=== PATIENT | female | born 1990 | race Caucasian/White ===

== ENCOUNTER 2020-02-13 02:32 | Inpatient (IN) | payer SELFPAY ==
[2020-02-13] MEDS ORDERED: NA CHLORIDE 0.9% 1,000 ML ONE ×2 (04:20→12:28)
[2020-02-13 05:50] LABS: Barbiturates NEGATIVE (NEGATIVE); Benzodiazepines NEGATIVE (NEGATIVE); Cocaine NEGATIVE (NEGATIVE); METHAMPHETAM POSITIVE (NEGATIVE); Methadone NEGATIVE (NEGATIVE); Opiates POSITIVE (NEGATIVE); Phencyclidine NEGATIVE (NEGATIVE); THC Cannibis NEGATIVE (NEGATIVE)
[2020-02-13 06:14] LABS: Absolute Lymphocytes (CBC) 0.8 K/uL (0.7-4.9); Basophils % 0.3 % (0-1.3); Hematocrit 37.5 % (36.0-45.0); Lymphocytes % 6.7 % (15.3-44.8); MPV 8.9 fL (7.6-11.3)
[2020-02-13 06:20] LABS: Urine Blood 1+ (NEG); Urine Glucose NEGATIVE (NEG); Urine Protein TRACE (NEG); Urine Specific Gravity 1.015 (1.005-1.030); Urine pH 6.5 (5.0-7.0)
[2020-02-13 06:20] LABS: Protime INR 1.51
[2020-02-13 06:29] LABS: ALT/SGPT 29 U/L (12-78); AST/SGOT 24 U/L (15-37); Albumin 2.8 g/dL (3.4-5.0); Alkaline Phosphatase 117 U/L (45-117); BUN Blood Urea Nitrogen 8 mg/dL (7-18); Bicarbonate 24 mmol/L (21-32); Bilirubin Direct 0.3 mg/dL (0-0.2); Bilirubin Total 0.7 mg/dL (0.2-1.0); CKMB Creatine Kinase MB 2.1 ng/mL (0.3-3.6); Creatine Phosphokinase 72 U/L (26-192); Glucose Level 96 mg/dL (74-106); Lipase 45 U/L (73-393); Magnesium 2.1 mg/dL (1.8-2.4); NT PRO-BNP 327 pg/mL (<125); Sodium Level 127 mmol/L (136-145); Troponin (Emerg Dept Use Only) < 0.02 ng/mL (0.0-0.045)
[2020-02-13 07:09] LABS: Blood Morphology Comment NOT SEEN (NOT SEEN); Platelet Estimate ADEQ
--- NOTE | 2020-02-13 08:30 | RAD REPORT ---
EXAM DESCRIPTION: RAD - Chest Single View - 02/13/2020 4:01 am CLINICAL HISTORY: SOB Chest pain. COMPARISON: Chest Pa And Lat (2 Views) dated 06/18/2016; CHEST PA AND LAT 2 VIEW dated 10/18/2015; CH EST SINGLE VIEW dated 03/12/2015No comparisons FINDINGS: Portable technique limits examination quality. The lungs are grossly clear. The heart is normal in size. No displaced fractures. IMPRESSION: No acute intrathoracic process suspected.
[2020-02-13] MEDS ORDERED: ACETAMINOPHEN 500 MG TAB ONE ×3 (09:01→19:29)
--- NOTE | 2020-02-13 09:21 | ER ---
Nurse's Notes [facility] Name: Krystyna Sarah Age: 29 yrs Sex: Female : 1990 Arrival Date: 02/13/2020 Time: 02:42 Bed 7 Private MD: Diagnosis: Chest pain on breathing;Chest pain, unspecified;Fever, unspecified;Adverse effect of amphetamines;Abuse of non-psychoactive substances;Poisoning by amphetamines, undetermined-IVDA;Pneumonia due to other specified bacteria Presentation: 02/12 03:08 Chief complaint: Patient states: "I started to feel bad on the 02 of February. I am having jd3 fevers, body aches with shortness of breath. I was having a fever tonight so I took Tylenol. I am also having nausea and vomiting.". Coronavirus screen: Surgical mask placed on patient. Patient moved to private room, placed in contact and droplet isolation with eye protection until further assessment. Patient reports shortness of breath or difficulty breathing. Patient reports a measured and/or subjective temperature greater than 100.4F. Ebola Screen: Patient negative for fever greater than or equal to 101.5 degrees Fahrenheit, and additional compatible Ebola Virus Disease symptoms. Initial Sepsis Screen: Does the patient meet any 2 criteria? No. Patient's initial sepsis screen is negative. Does the patient have a suspected source of infection? No. Patient's initial sepsis screen is negative. Risk Assessment: Do you want to hurt yourself or someone else? Patient reports no desire to harm self or others. Onset of symptoms was February 03, 2020. 03:08 Method Of Arrival: Ambulatory jd3 03:08 Acuity: MARLYN 3 jd3 Historical: - Allergies: 03:12 No Known Allergies; jd3 - Home Meds: 03:12 None [Active]; jd3 - PMHx: 03:12 None; jd3 - PSHx: 03:12 None; jd3 - Immunization history:: Adult Immunizations up to date. - Social history:: Smoking status: Patient reports the use of cigarette tobacco products, smokes one-half pack cigarettes per day. Screenin:14 Abuse screen: Denies threats or abuse. Nutritional screening: No deficits noted. jd3 Tuberculosis screening: No symptoms or risk factors identified. Fall Risk Ambulatory Aid- None/Bed Rest/Nurse Assist (0 pts). Gait- Normal/Bed Rest/Wheelchair (0 pts) Mental Status- Oriented to own ability (0 pts). Total Khanna Fall Scale indicates No Risk (0-24 pts). Assessment: 03:12 General: Appears in no apparent distress. uncomfortable, Behavior is calm, cooperative, jd3 appropriate for age, Reports fatigue for >3 days. Pain: Complains of pain in back, abdomen, right arm and left arm Quality of pain is described as aching, crampy. Neuro: Level of Consciousness is awake, alert, obeys commands, Oriented to person, place, time, situation. Cardiovascular: Denies chest pain, Capillary refill < 3 seconds Patient's skin is warm and dry. Respiratory: Reports shortness of breath at rest Airway is patent Respiratory effort is even, unlabored, Respiratory pattern is regular, symmetrical. GI: Abdomen is non-distended, Reports nausea, vomiting. : No signs and/or symptoms were reported regarding the genitourinary system. EENT: No signs and/or symptoms were reported regarding the EENT system. Derm: Skin is intact, Skin is dry, Skin is normal, Skin temperature is warm. Musculoskeletal: Circulation, motion, and sensation intact. Range of motion: intact in all extremities. 04:30 Reassessment: No changes from previously documented assessment. Patient and/or family jd3 updated on plan of care and expected duration. Pain level reassessed. Patient is alert, oriented x 3, equal unlabored respirations, skin warm/dry/pink. 05:50 Reassessment: No changes from previously documented assessment. Patient and/or family jd3 updated on plan of care and expected duration. Pain level reassessed. Patient is alert, oriented x 3, equal unlabored respirations, skin warm/dry/pink. 06:50 Reassessment: No changes from previously documented assessment. Patient and/or family jd3 updated on plan of care and expected duration. Pain level reassessed. Patient is alert, oriented x 3, equal unlabored respirations, skin warm/dry/pink. awaiting results. 07:00 Reassessment: Droplet precautions continued. . aa5 08:30 Reassessment: 20 G to R AC infiltrated in CT scan, mild swelling noted to site, IV aa5 dc'd. 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 22 G to L FA attempted and unsuccessful. MD was notified of inability to perform CT chest for r/o PE due to inability to obtain IV access. . 08:30 General: Appears uncomfortable, Behavior is calm, cooperative. Pain: Complains of pain aa5 in whole body Pain does not radiate. Pain currently is 6 out of 10 on a pain scale. Quality of pain is described as aching, crampy, throbbing, Pain began 1-2 weeks ago Is continuous. Neuro: Level of Consciousness is awake, alert, obeys commands, Oriented to person, place, time, situation. Cardiovascular: Heart tones S1 S2 present Rhythm is sinus tachycardia. Respiratory: Reports shortness of breath Airway is patent Respiratory effort is even, unlabored, Respiratory pattern is regular, symmetrical, Breath sounds are clear bilaterally. GI: Abdomen is flat, non-distended, Bowel sounds present X 4 quads. Abd is soft and non tender X 4 quads. Reports nausea, vomiting. : No signs and/or symptoms were reported regarding the genitourinary system. EENT: No signs and/or symptoms were reported regarding the EENT system. Derm: Skin is moist, Skin is normal, Skin temperature is hot. Musculoskeletal: Range of motion: intact in all extremities. 08:35 Reassessment: Pt assisted with bedpan, pt voided once. . aa5 08:40 Reassessment: MD at bedside attempting IV access using US. . aa5 09:10 Reassessment: Multiple US guided IV missed attempts by . Unsuccessful 18 G to L EJ by aa5 . . 09:45 Reassessment: Central line placement consent for obtained, signed by patient. . aa5 09:50 Reassessment: Pt now resting in bed with eyes closed, respirations even and unlabored, aa5 skin is pink/warm/dry. . 11:40 Reassessment: MD to bedside to complete Central line placement. . aa5 11:40 Reassessment: Patient is alert, oriented x 3, equal unlabored respirations, skin aa5 warm/dry/pink. Patient states feeling better. 11:53 Reassessment: Lactate and procalcitonin drawn by Dr. Guevara and sent to lab . aa5 11:55 Reassessment: Pt to CT scan via stretcher . aa5 12:10 Reassessment: Patient is alert, oriented x 3, equal unlabored respirations, skin aa5 warm/dry/pink. Pt back from CT scan. Pt assisted with bedpan, voided once. . 12:36 Reassessment: Patient is alert, oriented x 3, equal unlabored respirations, skin aa5 warm/dry/pink. Pt assisted with bedpan, pt voided once. . 13:00 Reassessment: Patient is alert, oriented x 3, equal unlabored respirations, skin aa5 warm/dry/pink. Patient states feeling better. Patient states symptoms have improved. Pt sitting up in bed eating lunch, pt tolerating well. . Vital Signs: 03:11 BP 110 / 65; Pulse 110; Resp 19 S; Temp 98.6(O); Pulse Ox 97% on R/A; Weight 72.57 kg jd3 (R); Height 5 ft. 4 in. (162.56 cm) (R); Pain 6/10; 05:50 BP 95 / 73; Pulse 98; Resp 18 S; Pulse Ox 99% on R/A; jd3 08:30 Temp 103.3(O); aa5 08:30 BP 114 / 79; Pulse 121; Resp 28 S; Pulse Ox 100% on R/A; aa5 10:00 BP 101 / 74; Pulse 111; Resp 26 S; Pulse Ox 100% on R/A; aa5 11:40 Temp 100.3(O); aa5 11:40 BP 99 / 75; Pulse 98; Resp 22 S; Pulse Ox 100% on R/A; aa5 12:25 BP 101 / 73; Pulse 99; Resp 24 S; Pulse Ox 100% on R/A; Pain 8/10; aa5 12:36 Temp 99.6(O); aa5 03:11 Body Mass Index 27.46 (72.57 kg, 162.56 cm) jd3 ED Course: 02:42 Patient arrived in ED. cl3 02:48 Austyn Lamas MD is Attending Physician. mh7 03:07 Carson Lewis, JONNY is Primary Nurse. jd3 03:11 Triage completed. jd3 03:12 Arm band placed on. jd3 03:14 Patient has correct armband on for positive identification. Bed in low position. Call j light in reach. Side rails up X 1. Pulse ox on. NIBP on. 04:02 Chest Single View XRAY In Process Unspecified. EDMS 05:15 Missed attempt(s): 20 gauge in right antecubital area. Bleeding controlled, band aid jd3 applied, catheter tip intact. 05:20 Missed attempt(s): 20 gauge in right antecubital area. Bleeding controlled, band aid jd3 applied, catheter tip intact. 05:55 Missed attempt(s): 24 gauge in left hand. Accessed peripheral vein via ultrasound, lp1 utilizing dynamic ultrasound technique using 20G Nexia IV catheter ,sterile technique, per hospital protocol. Clean \\T\\ dry. Dressing intact. Good blood return. Flushes easily. 05:55 by me, sent to lab. Second set of blood cultures drawn by me. lp1 07:00 Report received from JONNY Byrd. aa5 07:26 Attending Physician role handed off by Austyn Lamas MD [facility] 07:26 Tk Guevara MD is Attending Physician. [facility] 08:12 Elle Shin RN is Primary Nurse. aa5 09:03 Flu swab, strep swab, and COVID-19 collected and sent to lab. aa5 09:17 Ko Yanes DO is Hospitalizing Provider. [facility] 11:01 Radiology exam delayed due to awaiting femoral access for ct. 11:53 Assisted provider with central line placement. Set up central line tray. Triple lumen aa5 line placed in right femoral. Line placed by Tk Guevara MD Dressed with Tegaderm, Patient tolerated well. Before procedure, did Practitioner(s) obtain informed consent? Yes. Patient \\T\\ family education about procedure, CLABSI prevention and S/S of infection? Yes. Time-out/Briefing performed prior to start of procedure? Yes. Was handwashing/sanitizing done immediately prior to procedure? Yes. Was blood aspirated from each lumen? Yes. After the procedure, did the Practitioner(s) clean the site and apply a sterile dressing? Yes. 13:00 Patient admitted, IV remains in place. aa5 14:53 Echocardiogram with doppler done by optics manufacturing technician. tc Administered Medications: 06:02 Drug: NS 0.9% 1000 ml Route: IV; Rate: 1000 ml; Site: right antecubital; lp1 08:30 Follow up: IV Status: IV infiltrated; IV Intake: 700ml aa5 08:50 Drug: Tylenol 1000 mg Route: PO; ss 11:00 Follow up: Response: No adverse reaction; Temperature is decreased aa5 11:53 Drug: Rocephin 1 grams Route: IV; Rate: per protocol; Site: right femoral; aa5 12:00 Follow up: Response: No adverse reaction aa5 12:12 Drug: vancoMYCIN 1 grams Route: IVPB; Infused Over: 2 hrs; Site: right femoral; aa5 12:30 Follow up: Response: No adverse reaction aa5 14:12 Follow up: IV Status: Completed infusion aa5 12:12 Drug: NS 0.9% 1000 ml Route: IV; Rate: 1 bolus; Site: right femoral; aa5 13:15 Follow up: IV Status: Completed infusion; IV Intake: 1000ml aa5 12:12 Drug: NS 0.9% 1000 ml Route: IV; Rate: 1000 ml; Site: right femoral; aa5 13:00 Follow up: IV Status: Completed infusion; IV Intake: 1000ml aa5 12:25 Drug: NS 0.9% 1000 ml Route: IV; Rate: 125 ml/hr; Site: right femoral; aa5 13:00 Follow up: IV Status: Infusion continued upon admission aa5 12:26 Drug: morphine 4 mg Route: IVP; Site: right femoral; aa5 12:45 Follow up: Response: No adverse reaction; Pain is decreased aa5 12:26 Drug: Zofran (Ondansetron) 4 mg Route: IVP; Site: right femoral; aa5 12:45 Follow up: Response: No adverse reaction aa5 15:19 [email or web address] for [facility] and [facility]): Zithromax 500 mg IVPB once over aa5 1 hrs; mix in 250 mL NS Intake: 08:30 IV: 700ml; Total: 700ml. aa5 13:00 IV: 1000ml; Total: 1700ml. aa5 13:15 IV: 1000ml; Total: 2700ml. aa5 Outcome: 09:21 Decision to Hospitalize by Provider. joel 13:00 Admitted to ER Hold. Please [facility] for further documentation. aa5 13:00 Condition: stable aa5 13:00 Instructed on the need for admit, Demonstrated understanding of instructions. 02/13 02:24 Patient left the ED. jb4 Signatures: [facility] Tk Guevara MD MD cha Jones, Elle Landa, RN RN aa5 Amanda Apodaca, JONNY RN ss Sagrario Hannah RN RN lp1 Tammy Davidson, [facility] Martinez Peterson RN RN jb4 Carson Lewis RN RN jd3 Wili Valdez3 Austyn Lamas MD MD mh7
--- NOTE | 2020-02-13 09:21 | EDPHYS ---
Physician Documentation [facility] Name: Krystyna Sarah Age: 29 yrs Sex: Female : 1990 Arrival Date: 02/13/2020 Time: 02:42 Bed 7 Private MD: ED Physician Tk Guevara HPI: 02/12 04:04 This 29 yrs old Female presents to ER via Ambulatory with complaints of Fever.mh7 04:04 The patient reports fever, not measured (subjective). Onset: The symptoms/episode mh7 began/occurred 10 day(s) ago. Modifying factors: Recent medications: acetaminophen, 3 hours ago. Associated signs and symptoms: Pertinent positives: cough, that is dry, myalgias, shortness of breath, Pertinent negatives: abdominal pain, altered mental status, backache, chest pain, chills, diarrhea, pulling at ears, earache, headache, hemoptysis, nausea, night sweats, runny nose, sinus congestion, sinus drainage, skin rash, sore throat, swelling, vomiting. Severity of symptoms: At their worst the symptoms were moderate 5 day(s) ago, in the emergency department the symptoms have improved moderately. Historical: - Allergies: 03:12 No Known Allergies; jd3 - Home Meds: 03:12 None [Active]; jd3 - PMHx: 03:12 None; jd3 - PSHx: 03:12 None; jd3 - Immunization history:: Adult Immunizations up to date. - Social history:: Smoking status: Patient reports the use of cigarette tobacco products, smokes one-half pack cigarettes per day. ROS: 04:04 Eyes: Negative for injury, pain, redness, and discharge, ENT: Negative for injury, mh7 pain, and discharge, Neck: Negative for injury, pain, and swelling, Cardiovascular: Negative for chest pain, palpitations, and edema, Abdomen/GI: Negative for abdominal pain, nausea, vomiting, diarrhea, and constipation, Back: Negative for injury and pain, : Negative for injury, bleeding, discharge, and swelling, MS/Extremity: Negative for injury and deformity, Skin: Negative for injury, rash, and discoloration, Neuro: Negative for headache, weakness, numbness, tingling, and seizure, Psych: Negative for depression, anxiety, suicide ideation, homicidal ideation, and hallucinations, Allergy/Immunology: Negative for hives, rash, and allergies, Endocrine: Negative for neck swelling, polydipsia, polyuria, polyphagia, and marked weight changes, Hematologic/Lymphatic: Negative for swollen nodes, abnormal bleeding, and unusual bruising. Exam: 04:04 Constitutional: This is a well developed, well nourished patient who is awake, alert, mh7 and in no acute distress. Head/Face: Normocephalic, atraumatic. Eyes: Pupils equal round and reactive to light, extra-ocular motions intact. Lids and lashes normal. Conjunctiva and sclera are non-icteric and not injected. Cornea within normal limits. Periorbital areas with no swelling, redness, or edema. ENT: Nares patent. No nasal discharge, no septal abnormalities noted. Tympanic membranes are normal and external auditory canals are clear. Oropharynx with no redness, swelling, or masses, exudates, or evidence of obstruction, uvula midline. Mucous membranes moist. Neck: Trachea midline, no thyromegaly or masses palpated, and no cervical lymphadenopathy. Supple, full range of motion without nuchal rigidity, or vertebral point tenderness. No Meningismus. Chest/axilla: Normal chest wall appearance and motion. Nontender with no deformity. No lesions are appreciated. Cardiovascular: Regular rate and rhythm with a normal S1 and S2. No gallops, murmurs, or rubs. Normal PMI, no JVD. No pulse deficits. Respiratory: Lungs have equal breath sounds bilaterally, clear to auscultation and percussion. No rales, rhonchi or wheezes noted. No increased work of breathing, no retractions or nasal flaring. Abdomen/GI: Soft, non-tender, with normal bowel sounds. No distension or tympany. No guarding or rebound. No evidence of tenderness throughout. Back: No spinal tenderness. No costovertebral tenderness. Full range of motion. Skin: Warm, dry with normal turgor. Normal color with no rashes, no lesions, and no evidence of cellulitis. MS/ Extremity: Pulses equal, no cyanosis. Neurovascular intact. Full, normal range of motion. Neuro: Awake and alert, GCS 15, oriented to person, place, time, and situation. Cranial nerves II-XII grossly intact. Motor strength 5/5 in all extremities. Sensory grossly intact. Cerebellar exam normal. Normal gait. Psych: Awake, alert, with orientation to person, place and time. Behavior, mood, and affect are within normal limits. 06:40 ECG was reviewed by the Attending Physician. [facility] Vital Signs: 03:11 BP 110 / 65; Pulse 110; Resp 19 S; Temp 98.6(O); Pulse Ox 97% on R/A; Weight 72.57 kg jd3 (R); Height 5 ft. 4 in. (162.56 cm) (R); Pain 6/10; 05:50 BP 95 / 73; Pulse 98; Resp 18 S; Pulse Ox 99% on R/A; jd3 08:30 Temp 103.3(O); aa5 08:30 BP 114 / 79; Pulse 121; Resp 28 S; Pulse Ox 100% on R/A; aa5 10:00 BP 101 / 74; Pulse 111; Resp 26 S; Pulse Ox 100% on R/A; aa5 11:40 Temp 100.3(O); aa5 11:40 BP 99 / 75; Pulse 98; Resp 22 S; Pulse Ox 100% on R/A; aa5 12:25 BP 101 / 73; Pulse 99; Resp 24 S; Pulse Ox 100% on R/A; Pain 8/10; aa5 12:36 Temp 99.6(O); aa5 03:11 Body Mass Index 27.46 (72.57 kg, 162.56 cm) jd3 Procedures: 09:26 Central Line: the site was prepped with Betadine, in sterile fashion, a triple lumen joel catheter was inserted, in the right femoral vein, in 1 attempts. placement was verified, by blood return, the site was dressed with 4X4s, the patient tolerated the procedure, well. MDM: 03:38 Patient medically screened. [facility] 07:15 Differential diagnosis: viral Infection, bacterial infection, URI, bronchitis, [facility] pneumonia. 07:16 Transition of care: After a detail discussion of the patient's case, care is [facility] transferred to Tk Guevara MD. 09:14 Data reviewed: vital signs, nurses notes, lab test result(s), EKG, radiologic studies, joel plain films. Data interpreted: satellite project site monitor: rate is 125 beats/min, rhythm is regular, Pulse oximetry: on room air is 99 %. Test interpretation: by ED physician or midlevel provider: ECG, plain radiologic studies. Counseling: I had a detailed discussion with the patient and/or guardian regarding: the historical points, exam findings, and any diagnostic results supporting the discharge/admit diagnosis, lab results, radiology results, the need for further work-up and treatment in the hospital. ED course: fever, cp, dyspnea, ivda, will admit to dr marinelli, vq scan, echo w doppler. 02/12 03:39 Order name: Blood Culture Adult (2) 02/12 03:39 Order name: BMP; Complete Time: 06:39 [facility] 02/12 03:39 Order name: CBC with Diff; Complete Time: 07:49 02/12 03:39 Order name: Ckmb; Complete Time: 06:39 02/12 03:39 Order name: CPK; Complete Time: 06:39 02/12 03:39 Order name: D-Dimer; Complete Time: 07:49 7 02/12 03:39 Order name: Hepatic Function; Complete Time: 06:39 7 02/12 03:39 Order name: Lipase; Complete Time: 06:39 7 02/12 03:39 Order name: Magnesium; Complete Time: 06:39 7 02/12 03:39 Order name: NT PRO-BNP; Complete Time: 06:39 7 02/12 03:39 Order name: PT-INR; Complete Time: 07:49 02/12 03:39 Order name: Ptt, Activated; Complete Time: 07:49 7 02/12 03:39 Order name: Troponin (emerg Dept Use Only); Complete Time: 06:39 7 02/12 03:39 Order name: UDS; Complete Time: 06:01 7 02/12 03:39 Order name: Chest Single View XRAY; Complete Time: 08:32 7 02/12 05:32 Order name: Urine Dipstick--Ancillary (enter results); Complete Time: 06:23 2 02/12 05:32 Order name: Urine --Ancillary (enter results); Complete Time: 06:23 mw2 02/12 07:09 Order name: Manual Differential; Complete Time: 07:49 EDMS 02/12 08:58 Order name: COVID-19 ss 02/12 08:58 Order name: Flu; Complete Time: 13:12 02/12 08:58 Order name: Strep; Complete Time: 13:12 02/12 09:27 Order name: Procalcitonin; Complete Time: 13:12 [facility] 02/12 10:33 Order name: Throat Culture [facility] 02/12 11:27 Order name: Lactate; Complete Time: 13:12 [facility] 02/12 20:50 Order name: Gram Stain--Aerobic Bottle [facility] 02/12 20:50 Order name: Gram Stain--Anaerobic Bottle [facility] 02/12 20:51 Order name: Gram Stain--Aerobic Bottle [facility] 02/13 01:39 Order name: Gram Stain--Anaerobic Bottle [facility] 02/13 02:04 Order name: Lactate [facility] 02/12 03:39 Order name: EKG; Complete Time: 03:40 [facility] 02/12 03:39 Order name: Cardiac monitoring; Complete Time: 04:17 [facility] 02/12 03:39 Order name: EKG - Nurse/Tech; Complete Time: 06:03 [facility] 02/12 03:39 Order name: IV Saline Lock; Complete Time: 06:03 [facility] 02/12 03:39 Order name: Labs collected and sent; Complete Time: 06:03 [facility] 02/12 03:39 Order name: O2 Per Protocol; Complete Time: 04:18 [facility] 02/12 03:39 Order name: O2 Sat Monitoring; Complete Time: 04:18 [facility] 02/12 03:39 Order name: Urine Dipstick-Ancillary (obtain specimen); Complete Time: 06:03 [facility] 02/12 03:39 Order name: Urine Test (obtain specimen); Complete Time: 06:03 [facility] 02/12 06:49 Order name: CT Chest For PE Angio [facility] 02/12 08:58 Order name: Droplet/Contact Precautions; Complete Time: 09:26 02/12 09:14 Order name: Echo w/ Doppler [facility] 02/12 09:26 Order name: Central Line Kit; Complete Time: 12:04 [facility] 02/12 09:27 Order name: CT Chest For PE Angio [facility] 02/12 11:28 Order name: CONS Physician Consult [facility] 02/12 11:28 Order name: Regular [facility] 02/12 12:23 Order name: CT; Complete Time: 13:12 EDMS EC:40 Rate is 110 beats/min. Rhythm is regular, Sinus tachycardia with Rapid ventricular mh7 response. QRS [place] is Normal. IN interval is normal. QRS interval is normal. QT interval is normal. No Q waves. T waves are Normal. No ST changes noted. Clinical impression: Sinus tachycardia. Administered Medications: 06:02 Drug: NS 0.9% 1000 ml Route: IV; Rate: 1000 ml; Site: right antecubital; lp1 08:30 Follow up: IV Status: IV infiltrated; IV Intake: 700ml aa5 08:50 Drug: Tylenol 1000 mg Route: PO; ss 11:00 Follow up: Response: No adverse reaction; Temperature is decreased aa5 11:53 Drug: Rocephin 1 grams Route: IV; Rate: per protocol; Site: right femoral; aa5 12:00 Follow up: Response: No adverse reaction aa5 12:12 Drug: vancoMYCIN 1 grams Route: IVPB; Infused Over: 2 hrs; Site: right femoral; aa5 12:30 Follow up: Response: No adverse reaction aa5 14:12 Follow up: IV Status: Completed infusion aa5 12:12 Drug: NS 0.9% 1000 ml Route: IV; Rate: 1 bolus; Site: right femoral; aa5 13:15 Follow up: IV Status: Completed infusion; IV Intake: 1000ml aa5 12:12 Drug: NS 0.9% 1000 ml Route: IV; Rate: 1000 ml; Site: right femoral; aa5 13:00 Follow up: IV Status: Completed infusion; IV Intake: 1000ml aa5 12:25 Drug: NS 0.9% 1000 ml Route: IV; Rate: 125 ml/hr; Site: right femoral; aa5 13:00 Follow up: IV Status: Infusion continued upon admission aa5 12:26 Drug: morphine 4 mg Route: IVP; Site: right femoral; aa5 12:45 Follow up: Response: No adverse reaction; Pain is decreased aa5 12:26 Drug: Zofran (Ondansetron) 4 mg Route: IVP; Site: right femoral; aa5 12:45 Follow up: Response: No adverse reaction aa5 15:19 CANCELLED (see [facility] for order and administration): Zithromax 500 mg IVPB once over aa5 1 hrs; mix in 250 mL NS Disposition: 02/13/20 09:21 Hospitalization ordered by Ko Marinelli for Inpatient Admission. Preliminary diagnosis are Chest pain on breathing, Chest pain, unspecified, Fever, unspecified, Adverse effect of amphetamines, Abuse of non-psychoactive substances, Poisoning by amphetamines, undetermined - IVDA, Pneumonia due to other specified bacteria. - Bed requested for Telemetry/MedSurg (Inpatient). - Status is Inpatient Admission. jb4 - Condition is Fair. - Problem is new. - Symptoms have improved. Signatures: Dispatcher [employer] EDTN Tk Guevara MD MD cha Calderon, Audri RN RN aa5 Amanda Apodaca RN RN ss Sagrario Hannah RN RN lp1 Joanne Chen, JONNY RN cg Martinez Peterson RN RN jb4 Carson Lewis RN RN jd3 Austyn Lamas MD MD mh7 Corrections: (The following items were deleted from the chart) 09:26 08:58 Document PUI# ordered. [facility] 09:26 08:58 [facility] [phone]/ ordered. [facility] 11:23 09:28 LACTATE+C.LAB.BRZ ordered. [facility] EDTN 12:48 09:21 Hospitalization Ordered by Ko Marinelli DO for Inpatient Admission. Preliminary aa5 diagnosis is Chest pain on breathing; Chest pain, unspecified; Fever, unspecified; Adverse effect of amphetamines; Abuse of non-psychoactive substances; Poisoning by amphetamines, undetermined - IVDA. Bed requested for Telemetry/MedSurg (Inpatient). Status is Inpatient Admission. Condition is Fair. Problem is new. Symptoms have improved. [facility] 13:13 12:48 02/13/2020 09:21 Hospitalization Ordered by Ko Marinelli DO for Inpatient joel Admission. Preliminary diagnosis is Chest pain on breathing; Chest pain, unspecified; Fever, unspecified; Adverse effect of amphetamines; Abuse of non-psychoactive substances; Poisoning by amphetamines, undetermined - IVDA. Bed requested for [facility] ER HOLD. Status is Inpatient Admission. Condition is Fair. Problem is new. Symptoms have improved. aa5 15:19 13:13 Zithromax 500 mg IVPB once over 1 hrs; mix in 250 mL NS ordered. [facility] aa5 15:19 15:19 Zithromax 500 mg IVPB once over 1 hrs; mix in 250 mL NS ordered. aa5 aa5 02/13 01:36 02/12 13:13 02/13/2020 09:21 Hospitalization Ordered by Ko Marinelli DO for Inpatient cg Admission. Preliminary diagnosis is Chest pain on breathing; Chest pain, unspecified; Fever, unspecified; Adverse effect of amphetamines; Abuse of non-psychoactive substances; Poisoning by amphetamines, undetermined - IVDA; Pneumonia due to other specified bacteria. Bed requested for [facility] ER HOLD. Status is Inpatient Admission. Condition is Fair. Problem is new. Symptoms have improved. [facility] 02/13 02:24 01:36 02/13/2020 09:21 Hospitalization Ordered by Ko Marinelli DO for Inpatient jb4 Admission. Preliminary diagnosis is Chest pain on breathing; Chest pain, unspecified; Fever, unspecified; Adverse effect of amphetamines; Abuse of non-psychoactive substances; Poisoning by amphetamines, undetermined - IVDA; Pneumonia due to other specified bacteria. Bed requested for Telemetry/MedSurg (Inpatient). Status is Inpatient Admission. Condition is Fair. Problem is new. Symptoms have improved. cg
[2020-02-13] MEDS ORDERED: CEFTRIAXONE/SWI 1gm 1 GM/10 ML SYR ONE (11:08)
--- NOTE | 2020-02-13 11:08 | P.HP ---
Certification for Inpatient With expected LOS: >2 Midnights Patient will require the following post-hospital care: None Practitioner: I am a practitioner with admitting privileges, knowledge of patient current condition, hospital course, and medical plan of care. Services: Services provided to patient in accordance with Admission requirements found in Title 42 Section 412.3 of the Code of Federal Regulations <Nick Bosch - Last Filed: 02/13/20 11:59> Patient History Date of Service: 02/13/20 Primary Care Provider: none Reason for admission: Chest pain/shortness of breath History of Present Illness: 29-year-old female with past medical history of IV drug use including heroin and methamphetamine as well as a half a day cigarette smoker presents to the emergency room complaining of shortness of breath and chest pain. Patient states symptoms began 02 of February and have progressively worsened. States that at home she felt feverish but did not take her temperature. She was also complaining of chest pain. Has only been taking Tylenol over the counter with minimal symptom relief. In the ED patient is not in distress. She is not requiring O2 support at this time. Vitals are blood pressure 110/65, pulse of 110, respiratory of 19 and a temperature of 98.6 with an oxygen saturation of 97% on 2L NC. Chest x-ray is unremarkable. UDS shows positive for opiates and amphetamines. Blood work shows an elevated white cell count of 12.5, D-dimer significantly elevated at 2495, procalcitonin pending and a proBNP of 327. Sodium decreased to 127. She denies alcohol use but admits to smoking half a pack of cigarettes per day. EKG shows sinus tachycardia. Due to her history of IV drug use patient will require a PICC line or central line depending on venous access. CT to rule out PE pending. Cardiology was also consulted due to the risk of endocarditis and chest pain. Blood cultures pending. On examination patient is calm. States she feels a little better but is still not at her baseline. Due to her history of IV drug use patient is at high risk for bacteremia and/or endocarditis. She has also been around other people and will need to be screened for Covid-19. Patient also had an elevated D-dimer. CT chest rule out PE with results pending. Patient will be admitted to inpatient and further evaluated. Will start on IV antibiotics including vancomycin and cefepime. Continue telemetry. Continue O2 support if necessary. Once blood culture results are available, echocardiogram results are available antibiotics will be adjusted. Home medications list reviewed: Yes (No home meds) - Past Medical/Surgical History Diabetic: No -: IV drug use Psychosocial/ Personal History: Lives in [place] in an apartment with roomates. - Family History Family History: Reviewed- Non-Contributory - Social History Smoking Status: Current every day smoker Counseled patient to stop smoking for: more than 10 minutes Smoking therapy provided: No Patient receptive to therapy: No Alcohol use: No CD- Drugs: Yes Caffeine use: Yes Place of Residence: Home <MirandaroseanneNick - Last Filed: 02/13/20 11:59> Date of Service: 02/13/20 - Past Medical/Surgical History Past Surgical History: Reviewed- Non-Contributory <Ko Yanes - Last Filed: 02/13/20 19:06> Allergies No Known Allergies Allergy (Unverified 02/13/20 11:01) Review of Systems General: Fever, Weakness, Malaise Eyes: Unremarkable ENT: Unremarkable Respiratory: Shortness of Breath Cardiovascular: Chest Pain Gastrointestinal: Unremarkable Genitourinary: Unremarkable Musculoskeletal: Unremarkable Neurological: Unremarkable <Nick Bosch - Last Filed: 02/13/20 11:59> Physical Examination - Vital Signs Temperature: 98.6 F Blood Pressure: 110/65 Pulse: 110 Respirations: 19 Pulse Ox (%): 97 (RA) - Physical Exam General: Alert, In no apparent distress, Oriented x3 HEENT: Atraumatic, Normocephalic, PERRLA Neck: Supple, Other (Trachea midline) Respiratory: Clear to auscultation bilaterally, Normal air movement Cardiovascular: No edema, Normal pulses, Regular rate/rhythm, Normal S1 S2 Capillary refill: <2 Seconds Gastrointestinal: Normal bowel sounds, Soft and benign, Non-distended Musculoskeletal: No clubbing, No swelling, No contractures Integumentary: No rashes, No breakdown, No significant lesion Neurological: Normal gait, Normal speech, Normal strength at 5/5 x4 extr, Normal tone - Studies Laboratory Data (last 24 hrs) 02/13/20 05:55: PT 17.7 H, INR 1.51, APTT 29.7 02/13/20 05:55: WBC 12.3 H, Hgb 12.6, Hct 37.5, Plt Count 137 L 02/13/20 05:55: Sodium 127 L, Potassium 4.0, BUN 8, Creatinine 0.69, Glucose 96, Magnesium 2.1, Total Bilirubin 0.7, AST 24, ALT 29, Alkaline Phosphatase 117, Lipase 45 L Microbiology Data (last 24 hrs): 02/13/20 09:03 Nasopharnyx Influenza Type A Antigen Screen - Final 02/13/20 09:03 Nasopharnyx Influenza Type B Antigen Screen - Final 02/13/20 09:03 Throat Group A Streptococcus Rapid Screen - Final <Nick Bosch - Last Filed: 02/13/20 11:59> - Studies Laboratory Data (last 24 hrs) 02/13/20 05:55: PT 17.7 H, INR 1.51, APTT 29.7 02/13/20 05:55: WBC 12.3 H, Hgb 12.6, Hct 37.5, Plt Count 137 L 02/13/20 05:55: Sodium 127 L, Potassium 4.0, BUN 8, Creatinine 0.69, Glucose 96, Magnesium 2.1, Total Bilirubin 0.7, AST 24, ALT 29, Alkaline Phosphatase 117, Lipase 45 L Microbiology Data (last 24 hrs): 02/13/20 09:03 Nasopharnyx Influenza Type A Antigen Screen - Final 02/13/20 09:03 Nasopharnyx Influenza Type B Antigen Screen - Final 02/13/20 09:03 Throat Group A Streptococcus Rapid Screen - Final <Ko Yanes - Last Filed: 02/13/20 19:06> Assessment and Plan - Plan Impression: Chest pain with history of drug abuse including heroin and methamphetamine: Acute respiratory failure: Hyponatremia: History of IV drug use including methamphetamine and heroin: Plan: Chest pain with history of drug abuse including heroin and methamphetamine: Cardiology consulted - Dr. Sparrow. Echocardiogram ordered with results pending. Placed on continuous telemetry. Gentle IV hydration. Monitor daily labs. Blood cultures with results pending. Continue IV antibiotics of vanco mycin and cefepime for now and will adjust antibiotics as needed. Acute respiratory failure with an elevated D-dimer of 2495 on admission: Due to patient's history of IV drug use patient has limited venous access. Patient will central line. CT of the chest PE protocol with results pending. Continue O2 support as needed. Will hold off on consult to Pulmonology until results of CT are known. Patient does not use home oxygen. Hyponatremia: History of IV drug use including methamphetamine and heroin: Will require central line due to limited venous access. Will monitor for withdrawals. Counseled greater than 10 min. Future history of IV drug use patient is at high risk for bacteremia/endocarditis and with presenting symptoms will need echocardiogram and blood culture results which are pending. Will continue with above antibiotics and adjust as needed. Nicotine abuse with withdrawals: Patient admits to smoking half-pack cigarettes a day. Does not want nicotine patch this time. Counseled greater than 10 min. Discharge Plan: Home Plan to discharge in: Greater than 2 days - Advance Directives Does patient have a Living Will: No Does patient have a Durable POA for Healthcare: No - Code Status/Comfort Care Code Status Assessed: Yes Time Spent Managing Pts Care (In Minutes): 55 <Nick Bosch - Last Filed: 02/13/20 11:59> - Plan Case discussed at length with PA. Agree with evaluation, assessment and plan of care. Will adjust IV fluids. Will need to evaluate for COVID. Spoke with bone drier operator who will follow up on this patient to further evaluate. Cell Stripper Final will reassess. <Ko Yanes - Last Filed: 02/13/20 19:06>
[2020-02-13] MEDS ORDERED: NA CHLORIDE 0.9% 2,000 ML ONE (11:09)
[2020-02-13] MEDS ORDERED: ONDANSETRON 4 MG/2 ML VIAL IV PRN (11:14)
[2020-02-13] MEDS ORDERED: VANCOMYCIN/NS 1 gm 1 GM/250 ML BAG IV SCH (11:15)
[2020-02-13] MEDS ORDERED: LIDOCAINE 1% MPF 30 ML VIAL ONE (11:50)
[2020-02-13] MEDS ORDERED: NA CHLORIDE 0.9% 1,000 ML IV SCH (12:00)
--- NOTE | 2020-02-13 12:22 | RAD REPORT ---
EXAM DESCRIPTION: CT - Chest For Pe Angio - 02/13/2020 12:04 pm CLINICAL HISTORY: Chest pain. SOB COMPARISON: No comparisons TECHNIQUE: CT angiogram of the pulmonary arteries was performed with MIP. All CT scans are performed using dose optimization technique as appropriate and may include automated exposure control or mA/KV adjustment according to patient size. FINDINGS: No evidence of pulmonary thromboembolism. No acute aortic finding demonstrated. Bilateral areas of airspace infiltrate are present greatest in the lung bases. Largest areas of airsp iván infiltrate is in the right lung base laterally. Ground-glass opacities are present in both lung b ases as well. No significant pericardial or pleural fluid. No concerning bony finding. IMPRESSION: No evidence of pulmonary thromboembolism. Pulmonary infection findings are present greatest in the lung bases as detailed. Although not the cla ssically described pattern, the findings could indicate COVID infection.
[2020-02-13] MEDS ORDERED: MORPHINE 4 MG/ML SYR ONE (12:28)
[2020-02-13] MEDS ORDERED: ONDANSETRON 4 MG/2 ML VIAL ONE (12:28)
[2020-02-13] MEDS ORDERED: AZITHROMYCIN IV 500 MG in NA CHLORIDE 0.9% 250 ML IVPB ONE (14:15)
[2020-02-13] MEDS ORDERED: ENOXAPARIN 40 MG/0.4 ML SQ ONE (14:59)
[2020-02-13] MEDS: ACETAMINOPHEN 500 MG TAB PO PRN ×3 (15:00→23:30)
[2020-02-13] MEDS: ENOXAPARIN 40 MG/0.4 ML SQ SCH (15:00)
[2020-02-13 16:25] VITALS: BMI 27.4
[2020-02-13] MEDS: NA CHLORIDE 0.9% 1,000 ML IV SCH (18:46)
[2020-02-13] MEDS: CEFEPIME/SWI 1gm 10 ML IV SCH (21:00)
[2020-02-13] MEDS ORDERED: CEFEPIME 1 GM/VIAL IV SCH (21:00)
[2020-02-14] MEDS ORDERED: ACETAMINOPHEN 500 MG TAB ONE (00:10)
[2020-02-14] MEDS: dexAMETHasone 10 MG/ML VIAL IV SCH ×2 (02:00→09:45)
[2020-02-14] MEDS ORDERED: dexAMETHasone 4 MG/ML VIAL ONE (02:01)
[2020-02-14 05:51] LABS: Absolute Lymphocytes (CBC) 0.6 K/uL (0.7-4.9); Basophils % 0.3 % (0-1.3); Hematocrit 34.3 % (36.0-45.0); Lymphocytes % 4.9 % (15.3-44.8); MPV 9.5 fL (7.6-11.3)
[2020-02-14] MEDS: NA CHLORIDE 0.9% 1,000 ML IV SCH ×2 (05:56→14:26)
[2020-02-14 05:58] LABS: ALT/SGPT 28 U/L (12-78); AST/SGOT 35 U/L (15-37); Albumin 2.3 g/dL (3.4-5.0); Alkaline Phosphatase 130 U/L (45-117); BUN Blood Urea Nitrogen 6 mg/dL (7-18); Bicarbonate 24 mmol/L (21-32); Bilirubin Total 0.6 mg/dL (0.2-1.0); Glucose Level 147 mg/dL (74-106); HDL Cholesterol 7 mg/dL (40-60); LDL Cholesterol, Calculated 39 (<130); Magnesium 2.4 mg/dL (1.8-2.4); Potassium 3.8 mmol/L (3.5-5.1); Sodium Level 136 mmol/L (136-145)
[2020-02-14] MEDS ORDERED: POTASSIUM CL SA 10 MEQ TAB PO ONE (06:38)
--- NOTE | 2020-02-14 07:48 | EKG ---
Test Date: 2020-02-13 Test Time: 04:32:52 [employer]: [employer] MEASUREMENT RESULTS: Intervals: Rate: 110 MI: 124 QRSD: 84 QT: 340 QTc: 460 [place]: P: 52 MI: 124 QRS: 41 T: 44 INTERPRETIVE STATEMENTS: Sinus tachycardia Possible Left atrial enlargement RSR' or QR pattern in V1 suggests right ventricular conduction delay Borderline ECG No previous ECG available for comparison Electronically Signed On 02-14-20 07:44:54 CDT by Imtiaz Sparrow
[2020-02-14] MEDS ORDERED: PNEUMOCOCCAL VACCINE 0.5 ML IMVAC ONE (08:00)
--- NOTE | 2020-02-14 08:50 | ECHO ---
HEIGHT: 5 ft 4 in WEIGHT: 160 lb 0 oz DATE OF STUDY: 02/13/[address]: Tk Guevara MD 2-DIMENSIONAL: YES M.MODE: YES DOPPLER: YES COLOR FLOW: YES TDS: NO PORTABLE: YES DEFINITY: NO BUBBLE STUDY: NO DIAGNOSIS: INTRA VENTRICULAR CONDUCTION DELAY, FEVER, CHEST PAIN CARDIAC HISTORY: CATHERIZATION: NO SURGERY: NO PROSTHETIC VALVE: NO PACEMAKER: NO MEASUREMENTS (cm) DIASTOLIC (NORMALS) SYSTOLIC (NORMALS) IVSd 0.8 (0.6-1.2) LA Diam 3.2 (1.9-4.0) LVEF 63% LVIDd 4.2 (3.5-5.7) LVIDs 2.8 (2.0-3.5) %FS 34% LVPWd 0.9 (0.6-1.2) Ao Diam 2.7 (2.0-3.7) 2 DIMENSIONAL ASSESSMENT: RIGHT ATRIUM: NORMAL LEFT ATRIUM: NORMAL RIGHT VENTRICLE: NORMAL LEFT VENTRICLE: NORMAL TRICUSPID VALVE: NORMAL MITRAL VALVE: NORMAL PULMONIC VALVE: NORMAL AORTIC VALVE: NORMAL PERICARDIAL EFFUSION: NONE AORTIC ROOT: NORMAL LEFT VENTRICULAR WALL MOTION: NORMAL DOPPLER/COLOR FLOW: NORMAL COMMENTS: NORMAL 2D ECHOCARDIOGRAM. NO CLEAR EVIDENCE OF VEGETATION OR THROMBUS. TECHNOLOGIST: Cassie HANSON
[2020-02-14] MEDS: CEFEPIME/SWI 1gm 10 ML IV SCH ×3 (09:00→22:26)
[2020-02-14] MEDS: ACETAMINOPHEN 500 MG TAB PO PRN (09:51)
--- NOTE | 2020-02-14 12:15 | P.PN ---
Subjective Date of Service: 02/14/20 Primary Care Provider: none Chief Complaint: Chest pain/shortness of breath Subjective: Improving, Doing well <HiroNick - Last Filed: 02/14/20 12:19> Date of Service: 02/14/20 <Ko Yanes - Last Filed: 02/14/20 14:46> Review of Systems General: Malaise Eyes: Unremarkable ENT: Unremarkable Respiratory: Unremarkable Cardiovascular: Unremarkable Gastrointestinal: Unremarkable Musculoskeletal: Unremarkable Neurological: Weakness <Bar Boschel - Last Filed: 02/14/20 12:19> Physical Examination - Vital Signs Temperature: 98.4 F Blood Pressure: 99/60 Pulse: 92 Respirations: 18 Pulse Ox (%): 99 - Physical Exam General: Alert, In no apparent distress, Oriented x3 HEENT: Atraumatic, Normocephalic, PERRLA Neck: Supple, No Thyromegaly Respiratory: Clear to auscultation bilaterally, Diminished Cardiovascular: No edema, Normal pulses, Regular rate/rhythm Capillary refill: <2 Seconds Gastrointestinal: Normal bowel sounds, Soft and benign, Non-distended Musculoskeletal: No clubbing, No swelling, No contractures Integumentary: No rashes, No breakdown, No significant lesion Neurological: Normal gait, Normal speech, Normal strength at 5/5 x4 extr - Studies Microbiology Data (last 24 hrs): 02/13/20 09:03 Nasopharnyx Influenza Type A Antigen Screen - Final 02/13/20 09:03 Nasopharnyx Influenza Type B Antigen Screen - Final 02/13/20 09:03 Throat Group A Streptococcus Rapid Screen - Final <HiroNick - Last Filed: 02/14/20 12:19> - Studies Microbiology Data (last 24 hrs): 02/13/20 09:03 Nasopharnyx Influenza Type A Antigen Screen - Final 02/13/20 09:03 Nasopharnyx Influenza Type B Antigen Screen - Final 02/13/20 09:03 Throat Group A Streptococcus Rapid Screen - Final <Ko Yanes - Last Filed: 02/14/20 14:46> Assessment And Plan - Plan Impression: Chest pain with history of drug abuse including heroin and methamphetamine: Bacteremia: Acute respiratory failure: Hyponatremia: History of IV drug use including methamphetamine and heroin: Plan: Chest pain with history of drug abuse including heroin and methamphetamine: Cardiology consulted - Dr. pSarrow. Echocardiogram showed normal ejection fraction and no evidence of endocarditis. Continue continuous telemetry. Will discontinue Gentle IV hydration. Patient tolerating p.o. diet. Monitor daily labs. Blood cultures are positive x2 with further results pending. Continue IV antibiotics of vancomycin and cefepime for now and will adjust antibiotics as needed. Bacteremia: Patient's blood cultures are positive x2. Preliminary results show coagulase-negative which can indicate contamination. Will await further information on cultures before patient can be discharged. Echocardiogram was negative. Covid screening was negative as well. Will screen patient for flu and strep. Acute respiratory failure with an elevated D-dimer of 2495 on admission: Due to patient's history of IV drug use patient has limited venous access. Central line in place. D-dimer slightly improved to 1600 this morning. Covid screen negative. Continue O2 support as needed. Room air saturations of 90%. Discussed case with Pulmonology. Patient can follow up as an outpatient with Dr. Trujillo. Patient does not use home oxygen. CT of the chest was negative for PEs that showed Bilateral areas of airspace infiltrate are present greatest in the lung bases. Largest areas of airspace infiltrate is in the right lung base laterally. Ground-glass opacities are present in both lung bases as well. Hyponatremia: History of IV drug use including methamphetamine and heroin: Will require central line due to limited venous access. Will monitor for withdrawals. None so far. Counseled greater than 10 min. Endocarditis ruled out. Will continue with above antibiotics and adjust as needed. Nicotine abuse with withdrawals: Patient admits to smoking half-pack cigarettes a day. Does not want nicotine patch this time. Counseled greater than 10 min. Discharge Plan: Home Plan to discharge in: 48 Hours - Code Status/Comfort Care Code Status Assessed: Yes Time Spent Managing PTS Care (In Minutes): 45 <Nick Bosch - Last Filed: 02/14/20 12:19> - Plan Case discussed at length with PA. Agree with evaluation, assessment and plan of care. Case also discuss with cardiology. Echocardiogram unremarkable. Await blood cultures. Patient likely with underlying bilateral pneumonia. Patient tested negative COVID. Patient also with alcohol withdrawal. Patient be started on Librium and provide Ativan as needed. Diagnosis: Chest pain suspect related to acute respiratory failure with suspected bilateral pneumonia complicated with bacteremia Alcohol abuse with suspected alcohol withdrawal Tobacco abuse IV drug use with positive methamphetamine Hyponatremia <Ko Yanes - Last Filed: 02/14/20 14:46>
[2020-02-14] MEDS ORDERED: LORAZEPAM 0.5 MG TABLET PO PRN (12:58)
[2020-02-14] MEDS: chlordiazePOXIDE HCl 5 MG CAP PO PRN (14:26)
[2020-02-14] MEDS: ENOXAPARIN 40 MG/0.4 ML SQ SCH (18:19)
[2020-02-14] MEDS: dexAMETHasone 4 MG/ML VIAL IV SCH (18:19)
[2020-02-14 19:47] LABS: Rheumatoid Factor NEG (NEG)
[2020-02-15] MEDS: NA CHLORIDE 0.9% 1,000 ML IV SCH ×2 (00:18→09:59)
[2020-02-15] MEDS: dexAMETHasone 4 MG/ML VIAL IV SCH ×3 (00:19→17:00)
--- NOTE | 2020-02-15 01:52 | CON ---
Date of Consultation: 02/14/2020 The patient admitted to Dr. Yanes on 02/13/2020. She was seen on 02/14/2020. Reason For Consultation: Possible endocarditis. History Of Present Illness: The patient is a 29-year-old white woman, who has a history of IV drug a buse, came in with a temperature 102.9. Drug screen was positive for opiates and amphetamines. She had an elevated D-dimer, elevated white count, low platelets at 147, slightly elevated BNP. Her CRP was 254. Procalcitonin is 0.7. No cardiac symptoms reported. Echocardiogram, which was done yester day, was perfectly normal without any evidence of vegetation or thrombus. Past Medical History: Otherwise negative. Allergies: NONE. Medications At Home: None. Review of Systems: Negative. Social History: Positive for IV drug abuse. Physical Examination: General: She was afebrile. Chest: Clear. Cardiac: Exam was normal. No peripheral evidence of endocarditis. She had no edema. Diagnostic Data: Stated above. Impression And Plan: The patient with IV drug abuse, what appears to be sepsis. No clear evidence o f endocarditis. The patient is on IV antibiotics. We will follow her procalcitonin and her white co unt. No further cardiac recommendation from my standpoint. Nevertheless, I think if she continues to be febrile or unresponsive to therapy, I think a transesophageal echocardio gram may be indicated down the road. PAWEL/TING Voice ID: [id number] Report ID: [id number]
[2020-02-15 04:48] LABS: Absolute Lymphocytes (CBC) 1.2 K/uL (0.7-4.9); Basophils % 0.2 % (0-1.3); Hematocrit 35.2 % (36.0-45.0); Lymphocytes % 6.7 % (15.3-44.8); MPV 9.5 fL (7.6-11.3); RBC Red Blood Cell Count 4.13 M/uL (3.86-4.86)
[2020-02-15 05:02] LABS: BUN Blood Urea Nitrogen 9 mg/dL (7-18); Bicarbonate 23 mmol/L (21-32); Glucose Level 138 mg/dL (74-106); Potassium 3.9 mmol/L (3.5-5.1); Sodium Level 137 mmol/L (136-145)
[2020-02-15] MEDS ORDERED: VANCOMYCIN 1 GM in NA CHLORIDE 0.9% 500 ML IVPB SCH (08:31)
[2020-02-15] MEDS ORDERED: VANCOMYCIN 1.25 GM in NA CHLORIDE 0.9% 250 ML IVPB SCH (09:00)
[2020-02-15] MEDS ORDERED: POTASSIUM CL SA 10 MEQ TAB PO ONE (09:00)
--- NOTE | 2020-02-15 09:30 | P.CNS ---
Date of Consult: 02/15/20 Subjective: Patient is a 29-year-old female with past medical history of IV drug use including heroin and methamphetamine who presents to the ED with shortness of breath and chest pain for the past 10 days. Patient found to have bacteremia and leukocytosis which I have been consulted for. Patient examined at bedside. Patient tested negative for Covid 19. Past medical/surgical history: Denies Social History: IV drug use, Smokes Cigarettes 1/2 PPD Family History: Non-contributory Allergies No Known Allergies Allergy (Verified 02/14/20 04:11) Active Medications Acetaminophen (Tylenol -Extra Strength) 500 mg PO Q4HP PRN PRN Reason: TEMP > 101' F Stop: 03/14/20 11:15 Last Admin: 02/14/20 09:51 Dose: 500 mg Documented by: Chlordiazepoxide HCl (Librium) 10 mg PO TID PRN PRN Reason: AGITATION Stop: 03/15/20 12:58 Last Admin: 02/14/20 14:26 Dose: 10 mg Documented by: Dexamethasone (Decadron) 4 mg IV Q8HR ALLYN Stop: 03/15/20 17:01 Last Admin: 02/15/20 00:19 Dose: 4 mg Documented by: Enoxaparin Sodium (Lovenox 40 Mg Inj) 40 mg SQ 1700 ALLYN Stop: 03/14/20 17:01 Last Admin: 02/14/20 18:19 Dose: 40 mg Documented by: Sodium Chloride (Ns 1000 Ml Ivbag) 1,000 mls @ 100 mls/hr IV .Q10H ALLYN Stop: 03/14/20 18:47 Last Admin: 02/15/20 00:18 Dose: 1,000 mls Documented by: Cefepime HCl (Maxipime 1 Gm/10 Ml Ivp) 10 mls @ 200 mls/hr IV Q12HR ALLYN Stop: 03/15/20 09:01 Last Admin: 02/14/20 22:26 Dose: 10 mls Documented by: Vancomycin HCl 1.25 gm/ Sodium (Chloride) 250 mls @ 150 mls/hr IVPB Q12H ALLYN Stop: 03/16/20 09:01 Lorazepam (Ativan) 0.5 mg PO Q8H PRN PRN Reason: ANXIETY Stop: 03/15/20 12:59 Ondansetron HCl (Zofran) 4 mg IV Q6HP PRN PRN Reason: NAUSEA / VOMITING Stop: 03/14/20 11:15 Sodium Chloride (Normal Saline Flush) 10 ml IV BID ALLYN Stop: 03/14/20 21:01 Last Admin: 02/14/20 22:26 Dose: 10 ml Documented by: ROS: CV: Reports chest pain improved RESP: Reports shortness of breath resolved : Denies dysuria GI: Reports nausea, vomiting an diarrhea Objective: Temp Pulse Resp BP Pulse Ox 98.3 F 87 18 124/80 99 02/15/20 04:00 02/15/20 04:00 02/15/20 04:00 02/15/20 04:00 02/15/20 04:00 Labs: Sodium 137, potassium 3.9, BUN 9, creatinine 0.53, procalcitonin 0.57, date BC 18.3, hemoglobin 11.8, hematocrit 35.2, albumin 2.3 Chest xray 02/12: EXAM DESCRIPTION: RAD - Chest Single View - 02/13/2020 4:01 am CLINICAL HISTORY: SOB Chest pain. COMPARISON: Chest Pa And Lat (2 Views) dated 06/18/2016; CHEST PA AND LAT 2 VIEW dated 10/18/2015; CHEST SINGLE VIEW dated 03/12/2015No comparisons FINDINGS: Portable technique limits examination quality. The lungs are grossly clear. The heart is normal in size. No displaced fractures. IMPRESSION: No acute intrathoracic process suspected CT thorax 02/12: EXAM DESCRIPTION: CT - Chest For Pe Angio - 02/13/2020 12:04 pm CLINICAL HISTORY: Chest pain. SOB COMPARISON: No comparisons TECHNIQUE: CT angiogram of the pulmonary arteries was performed with MIP. All CT scans are performed using dose optimization technique as appropriate and may include automated exposure control or mA/KV adjustment according to patient size. FINDINGS: No evidence of pulmonary thromboembolism. No acute aortic finding demonstrated. Bilateral areas of airspace infiltrate are present greatest in the lung bases. Largest areas of airspace infiltrate is in the right lung base laterally. Ground-glass opacities are present in both lung bases as well. No significant pericardial or pleural fluid. No concerning bony finding. IMPRESSION: No evidence of pulmonary thromboembolism. Pulmonary infection findings are present greatest in the lung bases as detailed. Although not the classically described pattern, the findings could indicate COVID infection. ROS: General: Awake, alert, pleasant CV: S1,S2 RESP: Good breath sounds throughout lung quintanilla ABD: Nontender, bowel sounds present Extremities: No edema Skin: Multiple skin lesions/tracts at different stages of healing Assessment and plan: Bacteremia, secondary to Staph and Gram positive cocci in pairs and chains, likely Strep species Leukocytosis Protein calorie malnourished Continue Vancomycin and Maxipime, will reevaluate after full blood cultures report Recommend to repeat blood cultures Patient will need total of 2 weeks of antibiotics once blood cultures are negative Will continue to monitor Thank you for consult Patient discussed with Dr. Downs
[2020-02-15] MEDS: CEFEPIME/SWI 1gm 10 ML IV SCH (10:00)
[2020-02-15] MEDS: chlordiazePOXIDE HCl 5 MG CAP PO PRN (10:03)
--- NOTE | 2020-02-15 15:28 | PN ---
Date of Progress Note: 02/15/2020 Subjective: Ms. Sarah came in with fever, possible sepsis. Has a history of IV drug abuse. Echo cardiogram which was done yesterday showed no evidence of vegetation, wall motion abnormalities or pe ricardial effusion. She is today afebrile. Her white count remains at 18,000. Her creatinine is 0. 53. She was started on medication yesterday to prevent withdrawal. She does not have any cardiac sy mptoms or any physical evidence of endocarditis. We will continue present regimen. I will sign off her case for now. PAWEL/TING Voice ID: [id number] Report ID: [id number]
[2020-02-15] MEDS ORDERED: CEFAZOLIN/SWI 2gm 2 GM/20 ML SYR IV SCH (17:00)
--- NOTE | 2020-02-15 17:05 | P.PN ---
Subjective Date of Service: 02/15/20 Primary Care Provider: none Chief Complaint: Chest pain/shortness of breath Physical Examination - Vital Signs Temperature: 97.8 F Blood Pressure: 104/65 Pulse: 59 Respirations: 20 Pulse Ox (%): 96 - Physical Exam General: Alert, In no apparent distress, Oriented x3, Cooperative HEENT: Atraumatic Neck: Supple Respiratory: Clear to auscultation bilaterally, Normal air movement Cardiovascular: Normal pulses Neurological: Normal speech, Normal strength at 5/5 x4 extr, Normal tone - Studies Microbiology Data (last 24 hrs): 02/13/20 09:03 Throat Culture & Sensitivity - Final NORMAL UPPER RESPIRATORY MARÍA ELENA GROWN. 02/13/20 05:14 Blood - Blood Aerobic Blood Culture - Final Staph Aureus 02/13/20 05:14 Blood - Blood Blood Culture Gram Stain - Final 02/13/20 05:14 Blood - Blood Anaerobic Blood Culture - Final Staph Aureus 02/13/20 05:14 Blood - Blood Gram Stain - Final 02/13/20 05:55 Blood - Blood Aerobic Blood Culture - Final Staph Aureus 02/13/20 05:55 Blood - Blood Blood Culture Gram Stain - Final 02/13/20 05:55 Blood - Blood Anaerobic Blood Culture - Final Staph Aureus 02/13/20 05:55 Blood - Blood Gram Stain - Final Medications List Reviewed: Yes Assessment & Plan Discharge Plan: Home Plan to discharge in: Greater than 2 days Physician Review Additional Text: Impression: Chest pain with history of drug abuse including heroin and methamphetamine Bacteremia secondary to MSSA with CT findings showing possible bilateral bacterial pneumonia likely related to her IV drug use Hyponatremia History of IV drug use including methamphetamine and heroin Nicotine abuse Plan: Chest pain with history of drug abuse including heroin and methamphetamine: Case discussed with cardiology. Echocardiogram shows no evidence of endocarditis. Patient found to have bacteremia. MSSA identified. Patient will require 2 weeks of IV Ancef from negative blood culture. Repeat blood cultures obtained. Will confirm with infectious disease. Patient is from [facility]. Will need to discuss the plan of care with the patient. I will turn the service over to the hospitalist team tomorrow. I will go over the plan of care with him. Bacteremia secondary to MSSA with CT findings showing possible bilateral bacterial pneumonia likely related to her IV drug use: Blood cultures reviewed. DC Decadron. Continue with supplements. Patient was negative for COVID. Patient will require IV antibiotic therapy-Ancef for 2 weeks from the initial negative blood cultures. Will confirm with pharmacy and infectious disease. Hyponatremia: Resolved. Will Dc IV fluids. History of IV drug use including methamphetamine and heroin: Continue as above. Address risks of continued use. Addressed cessation. She plans to quit. Nicotine abuse: Patient admits to smoking half-pack cigarettes a day. Does not want nicotine patch this time. Counseling addressed on prior visit Time Spent Managing Pts Care (In Minutes): 55
[2020-02-15] MEDS: ENOXAPARIN 40 MG/0.4 ML SQ SCH (17:38)
[2020-02-15] MEDS ORDERED: ZINC SULFATE 220 MG CAP PO SCH (18:00)
[2020-02-15] MEDS ORDERED: FOLIC ACID 1 MG TABLET PO SCH (18:00)
[2020-02-15] MEDS ORDERED: THIAMINE HCL 100 MG TABLET PO SCH (18:00)
[2020-02-15 21:48] VITALS: O2SAT 96
--- NOTE | 2020-02-16 00:24 | P.DS ---
Discharge Date: 02/16/20 Primary Care Provider: none Disposition: AMA-LEFT AGAINST MEDICAL ADVIC Discharge Condition: FAIR Reason for Admission: Chest pain/shortness of breath Consultations: Cardiology and Infectious Disease Brief History of Present Illness: Patient is a 29-year-old female came to the hospital with fever. She was found to have MSSA bacteremia. She was admitted for IV antibiotic therapy. Central line was placed in the right femoral. Workup was pending regarding source of MSSA bacteremia. Hospital Course: Patient did not want stay in the hospital any longer. I spoke to her regarding the diagnosis. Patient needs IV antibiotics. However, she is refusing. She has decided to leave against medical advice. Vital Signs/Physical Exam: Temp Pulse Resp BP Pulse Ox 98.3 F 59 16 112/76 96 02/15/20 20:00 02/15/20 20:00 02/15/20 20:00 02/15/20 20:00 02/15/20 20:00 General: Alert, In no apparent distress, Oriented x3 Laboratory Data at Discharge: WBC 18.3 K/uL (4.3-10.9) H D 02/15/20 04:00 Hgb 11.8 g/dL (12.0-15.0) L 02/15/20 04:00 Hct 35.2 % (36.0-45.0) L 02/15/20 04:00 Plt Count 216 K/uL (152-406) D 02/15/20 04:00 PT 17.7 SECONDS (9.5-12.5) H 02/13/20 05:55 INR 1.51 02/13/20 05:55 APTT 29.7 SECONDS (24.3-36.9) 02/13/20 05:55 Sodium 137 mmol/L (136-145) 02/15/20 04:00 Potassium 3.9 mmol/L (3.5-5.1) 02/15/20 04:00 BUN 9 mg/dL (7-18) 02/15/20 04:00 Creatinine 0.53 mg/dL (0.55-1.3) L 02/15/20 04:00 Glucose 138 mg/dL (74-106) H 02/15/20 04:00 Magnesium 2.4 mg/dL (1.8-2.4) 02/14/20 05:25 Total Bilirubin 0.6 mg/dL (0.2-1.0) 02/14/20 05:25 AST 35 U/L (15-37) 02/14/20 05:25 ALT 28 U/L (12-78) 02/14/20 05:25 Alkaline Phosphatase 130 U/L (45-117) H 02/14/20 05:25 Triglycerides 167 mg/dL (<150) H 02/14/20 05:25 Cholesterol 79 mg/dL (<200) 02/14/20 05:25 HDL Cholesterol 7 mg/dL (40-60) L 02/14/20 05:25 Cholesterol/HDL Ratio 11.29 02/14/20 05:25 Lipase 45 U/L (73-393) L 02/13/20 05:55 Home Medications: levoFLOXacin [Levaquin] 750 mg PO DAILY #14 tab 02/16/20 New Medications: levoFLOXacin [Levaquin] 750 mg PO DAILY #14 tab Patient Discharge Instructions: Patient's decided to leave against medical advice. They recommended that she follow with a physician for go to the hospital as soon as possible. Diet: Regular Activity: Fall precautions Time spent managing pt's care (in minutes): 25
[2020-02-16 00:43] VITALS: BP 104/68; TEMP 98
== END 2020-02-16 00:23 | disposition left against medical advice (07) | DRG 871 ==
LOC: ER 02:32 → ERHOLD 11:08 → 4TH 02-14 02:19 → 2ND 02-15 18:08
PROVIDERS: ADMIT Family Medicine; ATTEND Family Medicine
PROC: 8E0ZXY6 Isolation (ICD-10-PCS; principal; 2020-02-13)
PROC: 06HY33Z Insertion of Infusion Device into Lower Vein, Percutaneous Approach (ICD-10-PCS; 2020-02-16)
DX: A41.9 Sepsis, unspecified organism (principal); J96.00 Acute respiratory failure, unspecified whether with hypoxia or hypercapnia; J15.211 Pneumonia due to Methicillin susceptible Staphylococcus aureus; E87.1 Hypo-osmolality and hyponatremia; F17.203 Nicotine dependence unspecified, with withdrawal; E46 Unspecified protein-calorie malnutrition; F10.239 Alcohol dependence with withdrawal, unspecified; F15.10 Other stimulant abuse, uncomplicated; T40.1X1A Poisoning by heroin, accidental (unintentional), initial encounter; T43.621A Poisoning by amphetamines, accidental (unintentional), initial encounter; Z68.27 Body mass index [BMI] 27.0-27.9, adult; Z71.6 Tobacco abuse counseling; Z20.828 Contact with and (suspected) exposure to other viral communicable diseases
CPT/HCPCS: 36415; 71045; 71275; 80048; 80053; 80061; 80076; 80307; 81003; 81025; 82550; 82553; 82728; 83605; 83615; 83690; 83735; 83880; 84145; 84484; 85025; 85379; 85610; 85652; 85730; 86038; 86140; 86430; 87040; 87070; 87077; 87081; 87186; 87205; 87804; 90471; 90670; 93005; 93306; 96361; 96365; 96366; 96375; 99285; J0456; J0690; J0692; J0696; J1100; J1650; J2405; J3370; J7030; J7050; Q0161; Q9967; U0002